=== PATIENT | male | born 1955 | race Caucasian/White ===

== ENCOUNTER 2020-08-19 18:08 | Emergency (ER) | payer BC ==
[~2020-08-19] VITALS: Ht 189.2 cm; Wt 104.0 kg
--- NOTE | 2020-08-19 18:52 | PHYS DOC ---
Past Medical History Past Medical History: GERD, Other Additional Past Medical Histor: enlarged prostate (ERIC LASTON APRN) Past Surgical History: No Surgical History (ERIC ALSTON APRN) Smoking Status: Never Smoker Alcohol Use: Occasionally Drug Use: None (ERIC ALSTON APRN) General Adult EDM: Chief Complaint: SHORTNESS OF BREATH HPI: HPI: Patient is a 64 year old male patient who presents with shortness of breath. Patient reports he has been diagnosed with Covid 2 days ago. Reports he started have symptoms proximally 7 days ago, with loss of sense which has since returned, states he was unable to sleep last night because he felt so horrible. Reports he just feels more short of breath when he starts to cough and he cannot stop his cough. He had taken some Delsym, which did not help his cough last night. Denies any fevers. Denies any nausea, vomiting. States he has had d iarrhea for the last several days. Denies any blood in his stools. States no exertional dyspnea. States he has had a headache as well (ERIC ALSTON APRN) Review of Systems: Review of Systems: Constitutional: Denies fever or chills. Reports generalized malaise Eyes: Denies change in visual acuity. [] HENT: Denies nasal congestion or sore throat. [] Respiratory: States dry, productive cough for the last several days, states some shortness of breath, worsens when he is starting to cough. Cardiovascular: Denies chest pain or edema. [] GI: Denies abdominal pain, nausea, vomiting, bloody stools states he has had several days of diarrhea : Denies dysuria. [] Musculoskeletal: Denies back pain or joint pain. [] Integument: Denies rash. [] Neurologic: Denies headache, focal weakness or sensory changes. [] Endocrine: Denies polyuria or polydipsia. [] Lymphatic: Denies swollen glands. [] Psychiatric: Denies depression or anxiety. [] (ERIC ALSTON APRN) Heart Score: Risk Factors: Risk Factors: DM, Current or recent (<one month) smoker, HTN, HLP, family history of CAD, obesity. Risk Scores: Score 0 - 3: 2.5% MACE over next 6 weeks - Discharge Home Score 4 - 6: 20.3% MACE over next 6 weeks - Admit for Clinical Observation Score 7 - 10: 72.7% MACE over next 6 weeks - Early Invasive Strategies (ERIC ALSTON APRN) Allergies: Allergies: Allergies Coded Allergies Type Severity Reaction Last Updated Verified No Known Drug Allergies 07/13/16 No (ERIC ALSTON APRN) Physical Exam: PE: Constitutional: Well developed, well nourished, no acute distress, non-toxic appearance. [] HENT: Normocephalic, atraumatic, bilateral external ears normal, oropharynx moist, no oral exudates, nose normal. [] Eyes: PERRLA, EOMI, conjunctiva normal, no discharge. [] Neck: Normal range of motion, no tenderness, supple, no stridor. [] Cardiovascular:Heart rate regular rhythm, no murmur [] Lungs & Thorax: Bilateral breath sounds clear to auscultation occasional dry cough noted. SPO2 94 to 96% on room air, patient conversational with no noted air hunger or distress [] Abdomen: Bowel sounds hyperactive , soft, no tenderness, no masses, no pulsatile masses. [] Skin: Warm, dry, no erythema, no rash. [] Back: No tenderness, no CVA tenderness. [] Extremities: No tenderness, no cyanosis, no clubbing, ROM intact, no edema. [] Neurologic: Alert and oriented X 3, normal motor function, normal sensory function, no focal deficits noted. [] Psychologic: Affect normal, judgement normal, mood normal. [] (ERIC ALSTON APRN) Current Patient Data: Vital Signs: Vital Signs Date Time Temp Pulse Resp B/P (MAP) Pulse Ox O2 Delivery O2 Flow Rate FiO2 08/19/20 18:15 99.4 97 20 131/80 (97) 94 Room Air 99.4 (ERIC ALSTON APRN) EKG: EKG: [] (ERIC ALSTON APRN) Radiology/Procedures: Radiology/Procedures: []PROCEDURE: CHEST AP ONLY Exam: Chest one view INDICATION: Short of air TECHNIQUE: Frontal view of the chest Comparisons: 08/12/2016 FINDINGS: The cardiomediastinal silhouette and pulmonary vessels are within normal limits. Subtle patchy airspace disease at the lung bases bilaterally. No pleural effusion. IMPRESSION: Subtle bilateral airspace disease, may be infectious or inflammatory in etiology. Electronically signed by: Reese Santo MD (08/19/2020 7:35 PM) [facility] (ERIC ALSTON APRN) Course & Med Decision Making: Course & Med Decision Making Pertinent Labs and Imaging studies reviewed. (See chart for details) []Reviewed imaging and labs without significant abnormalities. Discussed with patient no need for admission, no hypoxia, patient appears well, and recommend continued follow up with primary care as needed. Will provide Rx for additional cough medications. (ERIC ALSTON APRN) Course & Med Decision Making I have reviewed the PA/BED SETTER's note and Plan of Care. I was available for consultation as needed during the patient's visit in the emergency department. I agree with the clinical impression, plans and disposition. (FLYNN SINGLETARY MD) Dragon Disclaimer: Dragon Disclaimer: This electronic medical record was generated, in whole or in part, using a voice recognition dictation system. (ERIC ALSTON APRN) Departure Departure Impression: Primary Impression: COVID-19 Additional Impression: Cough in adult Disposition: 01 DC HOME SELF CARE/HOMELESS Condition: STABLE Referrals: LISETTE SIDHU MD (PCP) Patient Instructions: Cough, Adult Additional Instructions: During your stay, your oxygen level stayed at 94% or above, which is at a safe level to go home. There was no significant abnormalities in your blood tests that showed you as high risk for adverse outcomes in COVID. We will provide you with a prescription of cough medication. You should take the cough medication as prescribed. Continue to hydrate. You can use an inhaler which may help break your cough. Continue to stay hydrated. Follow up with your primary care provider Scripts D-Methorphan Hb/Prometh Hcl (PROMETHAZINE-DM SYRUP) 118 Ml Syrup 5 ML PO PRN Q4HRS PRN for cough for 4 Days, #120 ML 0 Refills Prov: ERIC ALSTON APRN 08/19/20 ERIC ALSTON APRN Aug 19, 2020 18:52 FLYNN SINGLETARY MD Aug 20, 2020 01:20
[2020-08-19 19:02] LABS: BASO % 1 % (0-3); EOS % 1 % (0-3); HEMATOCRIT 45.1 % (39.0-53.0); HEMOGLOBIN 16.2 g/dL (13.0-17.5); LYMPH % 13 % (24-48); MEAN CORPUSCULAR HEMOGLOBIN 32 pg (25-35); MEAN CORPUSCULAR HGB CONC 36 g/dL (31-37); MEAN CORPUSCULAR VOLUME 90 fL (79-100); MONO % 12 % (0-9); NEUT # 5.8 x10^3/uL (1.8-7.7); NEUT % 74 % (31-73); PLATELET COUNT 150 x10^3/uL (140-400); RED BLOOD COUNT 5.02 x10^6/uL (4.30-5.70); RED CELL DISTRIBUTION WIDTH 12.3 % (11.5-14.5); WHITE BLOOD COUNT 7.8 x10^3/uL (4.0-11.0)
[2020-08-19 19:10] LABS: CREATININE 0.8 mg/dL (0.7-1.3); GFR 97.3; POTASSIUM 3.9 mmol/L (3.5-5.1)
[2020-08-19 19:16] LABS: ALBUMIN 3.6 g/dL (3.4-5.0); ALBUMIN/GLOBULIN RATIO 0.9 (1.0-1.7); TOTAL BILIRUBIN 0.6 mg/dL (0.2-1.0); TOTAL PROTEIN 7.4 g/dL (6.4-8.2)
--- NOTE | 2020-08-19 19:38 | RAD ---
Exam: Chest one view INDICATION: Short of air TECHNIQUE: Frontal view of the chest Comparisons: 08/12/2016 FINDINGS: The cardiomediastinal silhouette and pulmonary vessels are within normal limits. Subtle patchy airspace disease at the lung bases bilaterally. No pleural effusion. IMPRESSION: Subtle bilateral airspace disease, may be infectious or inflammatory in etiology. Electronically signed by: Reese Santo MD (08/19/2020 7:35 PM) [facility]
[2020-08-19 19:50] VITALS: BP 129/81
[2020-08-19] MEDS ORDERED: PROM118S10 PO (19:54)
== END 2020-08-19 20:10 | disposition home or self-care (01) ==
LOC: ER 18:08
DX: U07.1 COVID-19 (principal); K21.9 Gastro-esophageal reflux disease without esophagitis
CPT/HCPCS: 36415; 71045; 80053; 84145; 84484; 85025; 85379; 86140; 99284